=== PATIENT | female | born 2000 | race Caucasian/White ===

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

== ENCOUNTER 2023-09-16 07:14 | Inpatient (IN) ==
[2023-09-16] MEDS ORDERED: LIDOCAINE 1% LOCAL 20 ML VIAL INFIL PRN (09:22)
[2023-09-16 10:14] LABS: Hematocrit (blood only) 38.5 % (37.0-47.0); Hemoglobin 12.5 g/dl (12.0-16.0); Mean Corpuscular Hemoglobin 30.4 pg (25.0-34.0); Mean Corpuscular Hgb Conc 32.5 g/dL (32.0-36.0); Mean Corpuscular Volume 93.7 fL (80.0-100.0); Mean Platelet Volume 12.7 fL (9.4-12.4); Platelet Count 210 K/uL (130-400); RDW Coefficient of Variation 15.1 % (11.5-14.5); RDW Standard Deviation 51.6 fL (36.4-46.3); Red Blood Count 4.11 M/uL (4.20-5.40)
--- NOTE | 2023-09-16 10:18 | History & Physical Report ---
Date of Service September 16, 2023 Assessment & Plan (1) Supervision of normal first : Plan: Admit to L&D. Labs, IV access. OK for intermittent monitoring if FHT cat 1. Desires as natural a labor process as possible - does not desire epidural. History of Present Illness Chief Complaint: contractions Primary Care Provider: RADHA Reyes 22yo @ 38 0/7, contractions over the past few days, really increased around 3am today. No leaking fluid, no vaginal bleeding. + movement. Allergies Allergy/AdvReac Type Severity Reaction Status Date / Time No Known Allergies Allergy Verified 09/16/23 07:38 Home Medications Medication Instructions Recorded Confirmed Type 21-iron fu-folic acid 1 tab PO DAILY 02/05/23 09/16/23 History [ Complete] ondansetron HCl 4 mg tablet 4 mg PO Q6H PRN nausea and 06/23/23 09/16/23 Rx vomiting #20 tabs Tums 1 tab PO PRN Heartburn 09/16/23 History iron 1 tab PO DAILY 09/16/23 09/16/23 History Patient History Medical History (Updated 09/16/23 @ 08:17 by Alma Farmer RN) Anemia Anxiety and depression Patient states she had anxiety and depression when she was a teenager, never used medication, and that she is okay now. Gonorrhea Chlamydia History of chicken pox Surgical History History of third molar tooth extraction Family History Denies family history of Ovarian cancer Prostate cancer Myocardial infarction Breast cancer Colorectal cancer Social History (Updated 02/05/23 @ 09:52 by Becky Solares) Smoking Status: Former smoker Tobacco Type: E-cigarettes / Vaping Second Hand Exposure: No; Do You Dip or Chew Tobacco: No; Hx Alcohol Use: No Hx Substance Use: No Preferred Language: German Communication Ability: Effective Visual Impairment: Limited Hearing Ability: Normal Conciliation Court Judge Required: No Beliefs That Will Affect Care: None marital status: Single marital status details: Jeffy Ambrosio (25) [phone] Current Living Situation: Significant Other Current Living Situation Comment: Patient Lives with Boyfriend, dogs, cats-Fob changing litter current occupational status: employed 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[employer] Feels Safe at Home: Yes Safety Concerns: Feels Safe At This Time Childhood Exposure to Second-Hand Smoke: No caffeine: No during the past year weight has: remained stable Dental Care, Regularly: Yes Physical Activity Frequency: Daily Seatbelt Use: always Sunscreen Use: Yes Review of Systems All systems reviewed & are unremarkable except as noted in HPI & below Physical Exam Physical Exam: 5-6cm/80/-2 FHT Cat 1 [place] Q 2 Constitutional: WD/WN, vitals as above Respiratory: normal respiratory effort, lungs clear to auscultation no respiratory distress Cardiovascular: Rate/Rhythm: regular rate and regular rhythm Gastrointestinal (Abdomen): Inspection/Auscultation: abdomen normal to inspection Percussion/Palpation: abdomen soft; abdomen nontender Gravid. No s/s chorio or abruption. Skin: no rashes, warm and dry Psychiatric: A+Ox3, euthymic affect Results & Data Vital Signs (Past 12 Hours) Vital Signs Temp Pulse Resp BP 09/16/23 07:48 36.9 C 82 18 134/84 09/16/23 07:31 82 134/84 09/16/23 07:30 36.9 C 09/16/23 07:30 18 09/16/23 07:30 18 Coding Level of Care Code None Diagnoses Supervision of normal first Z34.00
--- NOTE | 2023-09-16 14:31 | Labor Progress Brief Note ---
Date of Service September 16, 2023 Subjective Feeling ctx. Does not desire epidural. FHT Cat 1 [place] Q 2-4 / Continue labor Assessment & Plan Admission and Anticipated Discharge Date Admission Date: September 16, 2023 Results & Data Vital Signs (Past 12 Hours) Vital Signs Temp Pulse Resp BP 09/16/23 07:48 36.9 C 82 18 134/84 09/16/23 07:31 82 134/84 09/16/23 07:30 36.9 C 09/16/23 07:30 18 09/16/23 07:30 18 Coding Level of Care Code None
--- NOTE | 2023-09-16 20:09 | Labor Progress Brief Note ---
Date of Service September 16, 2023 Subjective Patient continues to labor. She declines cervix exam. Not feeling urge to push. FHT Cat 1 Assessment & Plan Admission and Anticipated Discharge Date Admission Date: September 16, 2023 Results & Data Vital Signs (Past 12 Hours) Vital Signs Temp Pulse Resp BP 09/16/23 19:06 18 09/16/23 19:06 36.4 C L 18 09/16/23 19:01 75 09/16/23 19:01 135/72 09/16/23 16:03 86 09/16/23 16:03 121/72 09/16/23 16:02 18 09/16/23 16:02 37.1 C 18 Coding Level of Care Code None
[2023-09-16] MEDS ORDERED: OXYTOCIN 30 UNITS/NSS 30 UNITS/500 ML BAG IV PRN (21:25)
--- NOTE | 2023-09-16 21:25 | Labor Progress Brief Note ---
Date of Service September 16, 2023 Subjective Patient willing to allow cervix exam at this point. Cervix unchanged - ctx pattern Q 4 min Advised AROM - she agreed. Scant clear fluid. Will monitor - if no increase in ctx, she is agreeable to pitocin. Wants natural labor, but agreeable to pitocin if AROM does not increase ctx. Assessment & Plan Admission and Anticipated Discharge Date Admission Date: September 16, 2023 Results & Data Vital Signs (Past 12 Hours) Vital Signs Temp Pulse Resp BP 09/16/23 21:00 18 09/16/23 21:00 37.0 C 18 09/16/23 19:06 18 09/16/23 19:06 36.4 C L 18 09/16/23 19:01 75 09/16/23 19:01 135/72 09/16/23 16:03 86 09/16/23 16:03 121/72 09/16/23 16:02 18 09/16/23 16:02 37.1 C 18 Coding Level of Care Code None
[2023-09-16] MEDS: LACTATED RINGER'S 1,000 ML IV PRN (22:23)
[2023-09-16] MEDS ORDERED: NALOXONE HCL 0.4 MG/1 ML VIAL/CARP IV PRN (23:52)
[2023-09-16] MEDS ORDERED: ROPIVACAINE 0.5% PF 5 MG/ML 20 ML VIAL EPI PRN (23:52)
[2023-09-16] MEDS ORDERED: ONDANSETRON INJ 2 MG/ML 2 ML VIAL IV PRN (23:52)
[2023-09-16] MEDS ORDERED: BUPIVACAINE 0.25% PF 30 ML VIAL EPI PRN (23:52)
[2023-09-16] MEDS ORDERED: fentANYL 2 MCG/ML BUPIVacaine 0.125%-NSS 100ML BAG EPI PRN (23:52)
[2023-09-16] MEDS ORDERED: diphenhydrAMINE 50 MG/ML VIAL IV PRN (23:52)
[2023-09-16] MEDS ORDERED: SODIUM CHLORIDE 0.9% PF INJ 10 ML VIAL EPI PRN (23:52)
[2023-09-16] MEDS ORDERED: BUPIVACAINE 0.25% PF 30 ML VIAL EPI STA (23:52)
[2023-09-16] MEDS ORDERED: LIDOCAINE 2%/EPINEPHRINE 1:200,000 20 ML PF EPI STA (23:52)
[2023-09-16] MEDS ORDERED: NALOXONE HCL 1 MG in SODIUM CHLORIDE 0.9% 1,000 ML IV PRN (23:52)
[2023-09-16] MEDS ORDERED: fentaNYL citrate PF 100 MCG/2 ML VIAL EPI PRN (23:52)
[2023-09-16] MEDS ORDERED: ePHEDrine sulfate 50 MG/ML AMP IV PRN (23:52)
[2023-09-16] MEDS ORDERED: fentaNYL citrate PF 100 MCG/2 ML VIAL EPI STA (23:52)
[2023-09-16] MEDS ORDERED: LIDOCAINE 2% MPF LOCAL 5 ML VIAL EPI PRN (23:52)
[2023-09-16] MEDS ORDERED: NALBUPHINE HCL 5 MG in SYRINGE 0 ML IV PRN (23:52)
[2023-09-16] MEDS ORDERED: SODIUM CHLORIDE 0.9% PF INJ 10 ML VIAL EPI STA (23:52)
--- NOTE | 2023-09-16 23:55 | Anesthesiology Consultation ---
Date of Service September 16, 2023 Assessment & Plan Chart Review Chart Review: Acceptable Risk for Labor Epidural Consults Requested none ASA ASA2 Proposed Anesthesia Anesthesia Type: Labor Epidural Risk / Benefits Reviewed With: PT / POA / Parent / Guardian, Accepts Plan and Informed Consent Obtained History Height/Weight Height: 5 ft 3 in Weight: 82.117 kg Allergies Allergy/AdvReac Type Severity Reaction Status Date / Time No Known Allergies Allergy Verified 09/16/23 07:38 Medications Home Medications Medication Instructions Recorded Confirmed Last Taken 21-iron fu-folic acid 1 tab PO DAILY 02/05/23 09/16/23 09/15/23 08:00 [ Complete] ondansetron HCl 4 mg tablet 4 mg PO Q6H PRN nausea and 06/23/23 09/16/23 Unknown vomiting #20 tabs Tums 1 tab PO PRN Heartburn 09/16/23 09/15/23 20:30 iron 1 tab PO DAILY 09/16/23 09/16/23 09/14/23 08:00 Active Medications Generic Name Dose Route Start Last Admin Trade Name Freq PRN Reason Stop Dose Admin Lactated Ringer's 1,000 mls @ 125 mls/hr 09/16/23 09:22 09/16/23 23:47 Lr IV 09/18/23 09:21 999 mls/hr .Q8H PRN Administration L&D Protocol Protocol Past Medical History Medical History Anemia Anxiety and depression Patient states she had anxiety and depression when she was a teenager, never used medication, and that she is okay now. Gonorrhea Chlamydia History of chicken pox Exercise / Class Metabolic Activity II 4-5 Yardwork/Stairs/Walk up hill Past Family History Family History Denies family history of Ovarian cancer Prostate cancer Myocardial infarction Breast cancer Colorectal cancer Past Surgical History Surgical History History of third molar tooth extraction Past Anesthesia History No Hx of Anesthesia Complications and No Family Hx of Anesthesia Complications History of PONV No Hx of PONV and No Hx of Motion Sickness Social History Smoking Status: Former smoker Do You Dip or Chew Tobacco: No Hx Alcohol Use: No Hx Substance Use: No substance use type: does not use Physical Exam Vital Signs Last Vital Signs Temp 98.6 F 09/16/23 21:00 Pulse 108 H 09/16/23 23:49 Resp 18 09/16/23 21:00 BP 128/71 09/16/23 22:25 Pulse Ox 100 09/16/23 23:49 ENMT Mouth: no dentition abnormality Thyromental Distance: > or= 3.5 Finger Breadths Mallampati Class: II Neck normal visual inspection Respiratory normal respiratory effort Auscultation: lungs clear to auscultation bilaterally Cardiovascular Rate/Rhythm: regular rate and regular rhythm Testing Laboratory Results 09/16/23 09:42
[2023-09-17] MEDS: BUPIVACAINE 0.25% PF 30 ML VIAL ONE (00:14)
[2023-09-17] MEDS: fentANYL 2 MCG/ML BUPIVacaine 0.125%-NSS 100ML BAG ONE (00:14)
[2023-09-17] MEDS: LIDOCAINE 2%/EPINEPHRINE 1:200,000 20 ML PF ONE ×2 (00:14→01:50)
[2023-09-17] MEDS: ePHEDrine sulfate 50 MG/ML AMP ONE (01:49)
[2023-09-17] MEDS: fentaNYL citrate PF 100 MCG/2 ML VIAL ONE (01:49)
[2023-09-17] MEDS: SODIUM CHLORIDE 0.9% PF INJ 10 ML VIAL ONE ×2 (01:49)
--- NOTE | 2023-09-17 02:26 | Labor Progress Brief Note ---
Date of Service September 17, 2023 Subjective Pt now has epidural, comfortable. FHT Cat 1 [place] Q 2-4 SVE 10/100/0 Continue labor, will start pushing when she feels urge. Assessment & Plan Admission and Anticipated Discharge Date Admission Date: September 16, 2023 Results & Data Vital Signs (Past 12 Hours) Vital Signs Temp Pulse Resp BP Pulse Ox 09/17/23 02:19 104 H 100 09/17/23 02:14 99 H 100 09/17/23 02:09 83 100 09/17/23 02:05 83 109/67 09/17/23 02:04 81 99 09/17/23 02:00 16 09/17/23 02:00 16 09/17/23 01:59 85 100 09/17/23 01:54 70 100 09/17/23 01:49 78 100 09/17/23 01:44 78 100 09/17/23 01:39 76 100 09/17/23 01:35 74 110/62 09/17/23 01:34 90 100 09/17/23 01:29 79 100 09/17/23 01:24 87 L 09/17/23 01:24 99 H 09/17/23 01:24 104 H 91 09/17/23 01:19 86 100 09/17/23 01:15 90 94 09/17/23 01:14 94 H 98 09/17/23 01:09 86 100 09/17/23 01:06 87 92 09/17/23 01:05 85 119/70 09/17/23 01:04 93 H 95 09/17/23 01:00 18 09/17/23 01:00 36.8 C 18 09/17/23 00:59 86 100 09/17/23 00:54 87 100 09/17/23 00:49 90 93 09/17/23 00:48 92 H 91 09/17/23 00:44 95 H 96 09/17/23 00:43 94 H 86 L 09/17/23 00:39 90 88 L 09/17/23 00:38 91 H 89 L 09/17/23 00:36 82 110/65 09/17/23 00:34 93 H 100 09/17/23 00:32 94 H 115/61 09/17/23 00:30 95 H 119/65 90 09/17/23 00:29 98 H 100 09/17/23 00:28 91 H 110/61 09/17/23 00:26 93 H 109/56 L 09/17/23 00:24 100 09/17/23 00:24 88 09/17/23 00:24 97 H 102/62 09/17/23 00:22 85 111/59 L 09/17/23 00:20 95 H 112/64 09/17/23 00:19 95 H 100 09/17/23 00:18 96 H 109/61 09/17/23 00:16 85 115/64 09/17/23 00:14 89 100 09/17/23 00:13 89 124/69 09/17/23 00:11 102 H 93 09/17/23 00:09 94 H 100 09/17/23 00:04 104 H 100 09/16/23 23:59 100 09/16/23 23:59 115 H 09/16/23 23:56 99 H 09/16/23 23:56 137/72 09/16/23 23:54 100 09/16/23 23:54 112 H 09/16/23 23:49 100 09/16/23 23:49 108 H 09/16/23 23:00 18 09/16/23 23:00 37.0 C 18 09/16/23 22:25 88 09/16/23 22:25 128/71 09/16/23 21:00 18 09/16/23 21:00 37.0 C 18 09/16/23 19:06 18 09/16/23 19:06 36.4 C L 18 09/16/23 19:01 75 09/16/23 19:01 135/72 09/16/23 16:03 86 09/16/23 16:03 121/72 09/16/23 16:02 18 09/16/23 16:02 37.1 C 18 Coding Level of Care Code None
[2023-09-17] MEDS: OXYTOCIN 30 UNITS/NSS 30 UNITS/500 ML BAG IV PRN (05:52)
[2023-09-17] MEDS: METHYLERGONOVINE MALEATE 0.2 MG/ML AMP ONE ×2 (05:55→07:02)
--- NOTE | 2023-09-17 06:04 | Delivery Summary ---
Vaginal Delivery Summary Date of Service September 17, 2023 Vaginal Delivery Summary [facility] Vaginal Delivery Summary: Pre-delivery diagnoses: 22yo @ 38 03/16, spontaneous labor Post-delivery diagnoses: same Procedure: spontaneous vaginal delivery Surgeon: Ashlie Hernandez DO Complications: none Findings: Viable female . Apgars: 8/9. Weight pending, please see nursery records Estimated QBL: 204cc Description of delivery: The patient progressed to complete with epidural anesthesia. She then began to push. She spontaneously vaginally delivered a viable from the cephalic presentation. The head delivered in LONNIE position. The anterior shoulder delivered, followed by the posterior shoulder, followed by the body. No nuchal. The baby was placed on mother's abdomen and a spontaneous cry was heard. Delayed cord clamping was employed, and the cord was doubly clamped and cut. Cord blood was obtained. The placenta was delivered spontaneously intact with a 3-vessel cord. The uterus and vagina were swept of clots and debris. IV pitocin was given. The uterus became firm. The cervix, vagina, and perineum were inspected and small right vaginal tear noted and repaired with 3-0 Vicryl. Excellent hemostasis was observed. The mother and baby are recovering in stable and good condition in the room. Sponge, needle and instrument counts were correct x 2. Ashlie Hernandez DO [facility] Vaginal Delivery Charge Vaginal Delivery Codes: 75247 global code for the antepartum, delivery, and post- Delivery Type Details: [facility]
[2023-09-17] MEDS ORDERED: oxyCODONE/ACETAMINOPHEN 5mg/325mg TAB PO PRN (06:15)
[2023-09-17] MEDS ORDERED: OXYTOCIN 30 UNITS/NSS 30 UNITS/500 ML BAG IV PRN (06:15)
[2023-09-17] MEDS ORDERED: ACETAMINOPHEN 325 MG TAB PO PRN (06:15)
[2023-09-17] MEDS ORDERED: HYDROCORTISONE ACETATE 25 MG SUPP PR PRN (06:15)
--- NOTE | 2023-09-17 07:14 | Anesthesia Procedure Note ---
Date of Service September 17, 2023 Anesthesia Post Epidural Note Vital Signs Vital Signs: Temp Pulse Resp BP Pulse Ox 37.0 C 80 18 137/62 100 09/17/23 05:00 09/17/23 07:02 09/17/23 06:45 09/17/23 07:02 09/17/23 05:54 Notes Mental Status: alert / awake / arousable and participated in evaluation Nausea / Vomiting: adequately controlled Pain: adequately controlled Airway Patency, RR, SpO2: stable & adequate BP & HR: stable & adequate Hydration State: stable & adequate Neuraxial Anesthesia: was administered and sensory block is resolving Anesthetic Complications: no major complications apparent Epidural: Removed without complications and With tip intact
[2023-09-17] MEDS: IBUPROFEN 600 MG TAB PO PRN (07:34)
[2023-09-17] MEDS: BENZOCAINE 20% SPRY 85 APPLN/85 GM CAN EXT PRN (07:35)
[2023-09-17] MEDS: PRENATAL VITAMIN 1 TAB PO SCH (09:31)
[2023-09-17] MEDS: DOCUSATE SODIUM 100 MG CAP PO SCH (09:31)
[2023-09-17] MEDS: DIPHTHER/TETAN/PERTUS Vaccine (Tdap, Adol/Adult) 0.5mL IM ONE (19:56)
--- NOTE | 2023-09-18 06:01 | Obstetrical Progress Note ---
Date of Service <Hong Rivera DO - Last Filed: 09/18/23 07:15> September 18, 2023 Assessment & Plan <Hong Rivera DO - Last Filed: 09/18/23 07:15> (1) Encounter for assessment: Patient is PPD 1 s/p and doing well - Eating well, voiding well, ambulating well - vitals reviewed and within normal limits - pain well controlled with analgesics - OOB, ambulation, diet progression as tolerated - Blood type: O+, GBS neg, rubella immune - Plan to discharge today - After discharge, 6 week follow up with OB visit type: exam and care immediately after delivery Qualified Code(s): Z39.0 - Encounter for care and examination of mother immediately after delivery <Trudy Dallas MD, FACOG - Last Filed: 09/18/23 07:28> (1) Encounter for assessment: Subjective <Hong Rivera DO - Last Filed: 09/18/23 07:15> 22 yo post- day 1 s/p Ambulation: ambulating normally Voiding: no voiding problems Passing Gas:: Yes Diet Tolerance:: regular diet Lochia:: Small Feeding Type:: breast feeding Current Pain Level: 3/10 Resting comfortably this AM in NAD. Denies HARMON, CP, SOB, N/V/D, LE pain/swelling. Physical Exam <Hong Rivera DO - Last Filed: 09/18/23 07:15> General: patient resting comfortably, NAD, non-toxic in appearance, answers questions appropriately. Skin: warm, dry, intact HEENT: NC/AT, anicteric sclera, conjunctiva without injection, moist mucus membranes. Heart: +S1/S2, regular, no m/r/g Lungs: equal air entry bilaterally, no rales/rhonchi/wheezes Abd: +BS, soft, NT/ND, uterine fundus firm at umbilicus. Ext: warm, no clubbing/cyanosis or edema, Quita's neg. Neuro: nonfocal, speech intact, no facial droop, moving all extremities. Results & Data <Hong Rivera DO - Last Filed: 09/18/23 07:15> Vital Signs (Past 12 Hours) Vital Signs Temp Pulse Resp BP Pulse Ox O2 Del Method 07/11/24 05:00 36.6 C 68 18 111/72 99 Room Air 09/18/23 01:04 36.7 C 75 18 113/76 91 Room Air 09/17/23 22:15 99 H 141/93 H 09/17/23 20:00 36.7 C 94 H 18 111/76 96 Room Air Supervising Physician <Trudy Dallas MD, FACOG - Last Filed: 09/18/23 07:28> Co-Signing Physician Notes Resident Physician Supervision Note: I was present with Dr. Rivera during the history and exam. I discussed the case with the resident and agree with the findings and plan as documented in the note. Any exceptions or clarifications are listed here: Eating, voiding, ambulating, no pain issues. ready to go home. instructions reviewed, f/u 6 wk pp check. breast/rhpos/ri Documented By: Trudy Dallas MD, FACOG Resident Activity Tracking <Hong Rivera DO - Last Filed: 09/18/23 07:15> Resident Involvement: Resident Care Provided Care Provided: OB Delivery
[2023-09-18 15:07] VITALS: RESP 18
[2023-09-18] MEDS: bisacodyL 5 MG TABEC PO SCH (20:06)
[2023-09-19] MEDS ORDERED: bisacodyL 10 MG SUPP PR PRN
[2023-09-19 01:55] VITALS: O2SAT 99
--- NOTE | 2023-09-19 05:59 | Obstetrical Progress Note ---
Date of Service <Hong Rivera DO - Last Filed: 09/19/23 07:13> September 19, 2023 Assessment & Plan <Hong Rivera DO - Last Filed: 09/19/23 07:13> (1) Encounter for assessment: Patient is PPD 1 s/p and doing well - Eating well, voiding well, ambulating well - vitals reviewed and within normal limits - pain well controlled with analgesics - OOB, ambulation, diet progression as tolerated - Blood type: O+, GBS neg, rubella immune - Plan to discharge today - After discharge, 6 week follow up with OB visit type: exam and care immediately after delivery Qualified Code(s): Z39.0 - Encounter for care and examination of mother immediately after delivery <Naty Guerra MD, FACOG - Last Filed: 09/19/23 07:32> (1) Encounter for assessment: Subjective <Hong Rivera DO - Last Filed: 09/19/23 07:13> 22 yo post- day 2 s/p Ambulation: ambulating normally Voiding: no voiding problems Passing Gas:: Yes Diet Tolerance:: regular diet Lochia:: Small Feeding Type:: breast feeding Current Pain Level:2/10 Resting comfortably this AM in NAD. Denies HARMON, CP, SOB, N/V/D, LE pain/swelling. Physical Exam <Hong Rivera DO - Last Filed: 09/19/23 07:13> General: patient resting comfortably, NAD, non-toxic in appearance, answers questions appropriately. Skin: warm, dry, intact HEENT: NC/AT, anicteric sclera, conjunctiva without injection, moist mucus membranes. Heart: +S1/S2, regular, no m/r/g Lungs: equal air entry bilaterally, no rales/rhonchi/wheezes Abd: +BS, soft, NT/ND, uterine fundus firm at umbilicus. Ext: warm, no clubbing/cyanosis or edema, Quita's neg. Neuro: nonfocal, speech intact, no facial droop, moving all extremities. Results & Data <Hong Rivera DO - Last Filed: 09/19/23 07:13> Vital Signs (Past 12 Hours) Vital Signs Temp Pulse Resp BP Pulse Ox O2 Del Method 09/19/23 01:00 36.6 C 70 18 117/82 99 Room Air 09/18/23 20:00 36.6 C 76 18 124/68 99 Room Air Supervising Physician <Naty Guerra MD, FACOG - Last Filed: 09/19/23 07:32> Co-Signing Physician Notes Resident Physician Supervision Note: I was present with [Name of resident] during the history and exam. I discussed the case with the resident and agree with the findings and plan as documented in the note. Any exceptions or clarifications are listed here: [None] Documented By: Naty Guerra MD, FACOG Resident Activity Tracking <Hong Rivera DO - Last Filed: 09/19/23 07:13> Resident Involvement: Resident Care Provided Care Provided: OB Delivery
[2023-09-19 06:17] LABS: Hematocrit (blood only) 29.5 % (37.0-47.0); Hemoglobin 9.6 g/dl (12.0-16.0)
[2023-09-19 09:28] VITALS: BP 115/77; PULSE 80; TEMP 98.2
== END 2023-09-19 11:24 | disposition home or self-care (01) | DRG 807 ==
LOC: OPB 07:14 → 4S1 07:26 → 4E2 09-17 09:00